=== PATIENT | female | born 1990 | race Caucasian/White ===

== ENCOUNTER 2017-09-03 10:03 | Emergency (ER) | payer SELFPAY ==
[~2017-09-03] VITALS: Ht 167.6 cm; Wt 62.0 kg
[2017-09-03 11:06] VITALS: BP 134/76
== END 2017-09-03 15:03 | disposition left against medical advice (07) ==
LOC: ER 11:13
DX: M54.9 Dorsalgia, unspecified (principal); Z53.21 Procedure and treatment not carried out due to patient leaving prior to being seen by health care provider